=== PATIENT | male | born 1960 | race Caucasian/White ===

== ENCOUNTER 2016-06-19 16:29 | Emergency (ER) ==
[2016-06-19 20:58] LABS: MANUAL DIFF NEEDED? NO
[2016-06-19 21:09] LABS: BASO% 0.3 % (0.0-0.8); EOS# 0.11 X1000 (0.0-0.7); EOS% 1.5 % (0.0-10.0); HEMATOCRIT 45.6 % (42.0-52.0); LYMPH# 1.57 X1000 (1.2-3.4); LYMPH% 21.9 % (20.5-51.1); MCH 29.4 PG (27-31); MCHC 35.1 g/dL (33-37); MCV 83.7 FL (81-99); MONO# 0.77 X1000 (0.11-0.59); MONO% 10.7 % (1.7-9.3); MPV 11.4 FL (7.4-10.4); NEUT% 65.6 % (42.2-75.2); PLT 265 X1000 (130-400); RBC 5.45 XMIL (4.7-6.1)
[2016-06-19 21:23] LABS: ALBUMIN 4.6 g/dL (3.5-5.0); CALCIUM 10.1 mg/dL (8.8-10.2); POTASSIUM 3.8 mmol/L (3.5-5.1); TOTAL BILIRUBIN 0.51 mg/dL (0.20-1.00)
[2016-06-19] MEDS ORDERED: ZOFRAN IV ONE (21:55)
[2016-06-19] MEDS ORDERED: NS 1,000 ML IV ONE (21:55)
[2016-06-19 22:34] LABS: URINE CULTURE NEEDED? NO; URINE SOURCE CLEAN CATCH
[2016-06-19 22:44] LABS: BILIRUBIN URINE NEGATIVE (NEGATIVE); BLOOD URINE NEGATIVE (NEGATIVE); COLOR YELLOW; GLUCOSE URINE NEGATIVE (NEGATIVE); LEUKOCYTES URINE NEGATIVE (NEGATIVE); NITRITE URINE NEGATIVE (NEGATIVE); PH URINE 5.5; PROTEIN URINE 100 mg/dL (NEGATIVE); TURBIDITY URINE HAZY (CLEAR); UROBILINOGEN URINE 2 mg/dL (NORMAL)
[2016-06-19 22:45] LABS: URINE MICRO REVIEW NEEDED? YES
[2016-06-19 22:52] LABS: UR EPITHELIAL CELLS <10 /HPF (<10); URINE BACTERIA NEGATIVE /HPF; URINE RBC <10 /HPF (<10); URINE WBC <10 /HPF (<10)
--- NOTE | 2016-06-19 23:04 | PROVIDER DOCUMENTATION ---
HPI-Abdominal Pain/GI Problem - General Chief Complaint: Nausea/Vomiting Stated Complaint: ABD PAIN/VOMITING Time Seen by Provider: 06/19/16 21:54 Source: patient Allergies/Adverse Reactions: Patient Allergies Allergy/AdvReac Type Severity Reaction Status Date / Time cephalexin monohydrate * Allergy Intermediate RASH Verified 06/19/16 22:03 [From Keflex] clindamycin Allergy RASH Verified 06/19/16 22:03 Home Medications: Omeprazole 20 mg PO QAM 05/28/16 - History of Present Illness-ABD Nature of Presenting Problems: 55 year old M presents to the ED with a cc of nausea, vomiting, and diarrhea. PT states that he ate black eye peas and ham New Year's Day and had nausea, vomiting, and diarrhea. PT states that he ate the same thing 2 days ago and again has had nausea, vomiting, and diarrhea. Abdominal Pain Onset Location: reports: generalized abdomen Pain Radiation: reports: no radiation Quality of Pain: reports: aching Severity in ED: reports: mild Onset/Duration: reports: 2 days ago Timing: reports: still present Modifying Factors: improves with: nothing Associated Symptoms: reports: diarrhea, nausea, vomiting Bruising or Bleeding Gums?: No Similar Symptoms Previously?: Yes Recently seen or treated by another doctor?: No Review of Systems - Adult - REVIEW OF SYSTEMS - ADULT Constitutional: denies: chills, fever Eyes: reports: no symptoms reported Ears, Nose, Mouth & Throat: reports: no symptoms reported Cardiovascular: denies: chest pain, palpitations Respiratory: denies: cough, shortness of breath Gastrointestinal: reports: abdominal pain, diarrhea, nausea, vomiting Genitourinary: denies: dysuria, hematuria Musculoskeletal: denies: muscle aches, muscle weakness Integumentary: denies: skin sores/ulcer, skin thickening Neurological: reports: no symptoms reported Psychiatric: reports: no symptoms reported Endocrine: reports: no symptoms reported Hematologic/Lymphatic: reports: no symptoms reported Allergic/Immunologic: reports: no symptoms reported All Other Systems: Reviewed and Negative Past History - Adult - PAST MEDICAL HISTORY-ADULT Review of Records: reports: Nursing Assessment Review, Medications Reviewed Major Childhood Illnesses: reports: denies history Gastrointestinal: reports: GERD - PRIOR SURGERIES/PROCEDURES Surgical/Procedure History: reports: orthopedic (extremity) - IMMUNIZATION STATUS Childhood Immunizations: See Nurse Assessment Flu Vaccine: See Nurse Assessment - SOCIAL HISTORY Smoking: non-smoker Substance Use: amphetamines, cocaine Alcohol Use Frequency: never Physical Exam-General - PHYSICAL EXAM-ADULT Initial Vital Signs Reviewed: Yes - CONSTITUTIONAL General Appearance: appears well, alert, no apparent distress - RESPIRATORY Respiratory: chest non-tender, lungs clear, normal breath sounds - CARDIOVASCULAR Cardiovascular: normal peripheral pulses, regular rate, rhythm, no edema - GASTROINTESTINAL (ABDOMEN) Abdominal Exam: normal bowel sounds, non tender, soft - SKIN Integumentary: normal color, normal turgor, warm/dry - PSYCHIATRIC Psych/Mental Status: normal mood/affect, normal thought content, normal thought process, oriented x 3 Progress - PLAN OF CARE/RESULTS Progress/Plan/Lab Results: plan of care: labs, fluids, medications Orders Category Date Time Status Saline Loc DIRECTED Care 06/19/16 19:32 Active NPO Diet 06/19/16 19:32 Active AMYLASE [CHEM] Stat Lab 06/19/16 20:50 Completed CBC WITH ELECTRONIC DIFF [HEME] Stat Lab 06/19/16 20:50 Completed COMPREHENSIVE METABOLIC PANEL [CHEM] Stat Lab 06/19/16 20:50 Completed LIPASE [CHEM] Stat Lab 06/19/16 20:50 Completed URINALYSIS W/POSS RFLX CULT [URINALYSIS] Stat Lab 06/19/16 22:27 Results URINE MANUAL MICROSCOPIC [URINALYSIS] Stat Lab 06/19/16 22:27 Results 0.9% Sodium Chloride Inj [Ns] 1,000 ml Med 06/19/16 21:55 Discontinued IV 999 mls/hr Ondansetron [Zofran] Med 06/19/16 21:55 Discontinued 8 mg IV NOW ONE Laboratory Tests 06/19/16 06/19/16 06/19/16 20:50 20:50 22:27 WBC 7.18 RBC 5.45 Hgb 16.0 Hct 45.6 MCV 83.7 MCH 29.4 MCHC 35.1 RDW Std Deviation 12.4 Plt Count 265 MPV 11.4 H Immature Gran % (Auto) 0.0 Neut % (Auto) 65.6 Lymph % (Auto) 21.9 Holmes % (Auto) 10.7 H Eos % (Auto) 1.5 Baso % (Auto) 0.3 Immature Gran # (Auto) 0.00 Neut # (Auto) 4.71 Lymph # (Auto) 1.57 Holmes # (Auto) 0.77 H Eos # (Auto) 0.11 Baso # (Auto) 0.02 Sodium 137 Potassium 3.8 Chloride 98 Carbon Dioxide 24 L Anion Gap 15 BUN 31 H Creatinine 2.0 H Estimated GFR/1.73 m2 35 BUN/Creatinine Ratio 16 Glucose 110 H Calculated Osmolality 281 Calcium 10.1 Total Bilirubin 0.51 AST 25 ALT 16 Alkaline Phosphatase 94 Total Protein 8.0 Albumin 4.6 Globulin 3.4 Albumin/Globulin Ratio 1.4 Amylase 52 Lipase 39 Urine Source CLEAN CATCH Urine Color YELLOW Urine Turbidity HAZY Urine pH 5.5 Ur Specific Arrey 1.030 Urine Protein 100 A Ur Glucose (Stick) NEGATIVE Ur Ketones (Stick) TRACE A Urine Blood NEGATIVE Urine Nitrite NEGATIVE Urine Bilirubin NEGATIVE Urobilinogen Dipstick 2 A Urine Leukocytes NEGATIVE Urine WBC (Auto) <10 Urine RBC (Auto) <10 U Epithel Cells (Auto) <10 Urine Bacteria (Auto) NEGATIVE Vital Signs - 24 hr 06/19/16 17:10 Temperature 98.2 F Pulse Rate 110 H Respiratory 22 Rate Blood Pressure 128/93 O2 Sat by Pulse 99 Oximetry Pt given results and will be d/c home w/ rx to follow up with PCP. Pt verbally understood instructions. PT remained clinically stable throughout the course of the ED stay and will return if symptoms worsen. Departure - Departure Time of Disposition Order: 23:04 DIAGNOSIS: Food poisoning Qualifiers: Encounter type: initial encounter Injury intent: accidental or unintentional Qualified Code(s): T62.91XA - Toxic effect of unspecified noxious substance eaten as food, accidental (unintentional), initial encounter Disposition: HOME 01 Certified Medical Emergency: Emergent Condition: Good Additional Instructions: Follow up with primary care doctor. Return to ED for any new or worsening symptoms. ED Follow Up Instructions: You have been treated by a care provider in the Emergency Department. These instructions are being provided to you so you can have an understanding of how to care for yourself upon discharge. Upon discharge from the Emergency Department, you are responsible for making arrangements for follow-up care by a physician of your choice. Take all prescribed medications as directed. Return to the Emergency Department immediately for any new or worsening symptoms. You may call the Physician Referral phone number at [phone] to obtain a list of Physicians who are taking new patients. Referrals: Reji Del Toro MD [Primary Care Provider] - Attestation - Scribe Verification/Attestation Scribe:: Anastasia Kramer Acting as Scribe for:: Lester Felix Scribe documention review:: This chart was documented by a scribe and accurately reflects the service the provider performed and the decisions made by the provider. Physician Attestation - Physician Attestation I, the provider, attest to the following statement:: Lester Felix Physician documentation Attestation:: This documentation recorded by the scribe accurately reflects the service I personally performed and the decisions made by me.
[2016-06-19 23:21] VITALS: BP 133/78
[2016-06-19 23:23] LABS: URINE CASTS NONE SEEN
== END 2016-06-19 23:50 | disposition home or self-care (01) ==
LOC: ED 16:29
DX: T62.91XA Toxic effect of unspecified noxious substance eaten as food, accidental (unintentional), initial encounter (principal); R10.84 Generalized abdominal pain; R11.2 Nausea with vomiting, unspecified; R19.7 Diarrhea, unspecified; K21.9 Gastro-esophageal reflux disease without esophagitis
CPT/HCPCS: 80053; 81001; 82150; 83690; 85025; 99282; J7030